=== PATIENT | male | born 1985 | race African-American/Black ===

== ENCOUNTER 2024-09-03 18:33 | Emergency (ER) | payer SELFPAY ==
[~2024-09-03] VITALS: Ht 170.2 cm; Wt 66.0 kg
[2024-09-03 18:37] VITALS: PULSE 74; RESP 18; O2SAT 99
[2024-09-03 18:38] VITALS: BP 99/76; TEMP 98.6; O2SAT 99
== END 2024-09-03 21:24 | disposition left against medical advice (07) ==
LOC: ER 18:33
DX: Z76.0 Encounter for issue of repeat prescription (principal); F20.9 Schizophrenia, unspecified
CPT/HCPCS: 99281